=== PATIENT | female | born 1980 | race Caucasian/White ===

== ENCOUNTER 2016-02-20 22:07 | Emergency (ER) | payer OTHER ==
[~2016-02-20 22:07] MED LIST: PREN1CAP30 PO; TETA1INJ4 IM
--- NOTE | 2016-02-20 23:00 | PD ---
HPI Chief Complaint Leakage of fluid Date Seen: Feb 20, 2016 Time Seen: 22:40 Travel History International Travel<30 Days: No Contact w/Intl Traveler<30Days: No Known Affected Area: No History of Present Illness HPI 35-year-old at 39 weeks and 3 days of gestation, EDC 02/24/16, patient presents to labor and delivery complaining of leaking leakage of fluid, she denies cramping, vaginal bleeding, contractions. Patient reports presence of movement. care is with the [facility]. course is unremarkable. Evaluation reveals a negative PAMG1 test ( amnisure). Para: 2 : 5 Miscarriage: 2 : 0 History Past Medical History Narrative Medical Denies Medical History: Denies Significant Hx Obstetric History Obstetric History Spontaneous vaginal delivery 2, spontaneous 2 Past Surgical History Narrative Surgical [place] tooth extraction Family History Narrative Family History Father with hypertension, heart disease and kidney disease Social History Alcohol Use: No Tobacco Use: No Substance Abuse: No Allergies-Medications (Allergen,Severity, Reaction): Coded Allergies: No Known Allergies (Unverified , 02/19/16) Home Meds Active Scripts Without A W/Fe Fum-Fe (Provida Dha 16-16-1.25-110 mg)1 Cap Cap1 Tab PO DAILY #30 BOTTLE Ref 11 Prov:Sirena Siegel CNM [facility] 01/23/16 Review of Systems Except as stated in HPI: all other systems reviewed are Neg Genitourinary: Discharge, Other (leakage of fluid) Physical Exam Narrative GENERAL: Well-nourished, well-developed patient. SKIN: Warm and dry. HEAD: Normocephalic and atraumatic. EYES: No scleral icterus. No injection or drainage. ENT: No nasal drainage noted. Mucous membranes pink. Airway patent. NECK: Supple, trachea midline. No JVD. CARDIOVASCULAR: Regular rate and rhythm without murmurs, gallops, or rubs. RESPIRATORY: Breath sounds equal bilaterally. No accessory muscle use. BREASTS: Bilateral exam showed no masses , no retractions, no nipple discharge. ABDOMEN/GI: Abdomen soft, gravid, non-tender, bowel sounds present, no rebound, no guarding Gravid to 39 weeks size Fundal Height: 39 cm GENITOURINARY: External Genitalia: intact and normal in appearance BUS glands: Normal Cervix: 2 centimeter, 70%, -3, posterior, amnisure is negative Dilatation: 2 cm Effacement:, 90% Station: -3 Presentation: Cephalic Membranes: Intact Uterine Contractions: Occasional FHT's: Category: one Baseline: 140s Reactive: Yes Variability: Moderate Decels: None EXTREMITIES: No cyanosis or edema. BACK: Nontender without obvious deformity. No CVA tenderness. NEUROLOGICAL: Awake and alert. Motor and sensory grossly within normal limits. Five out of 5 muscle strength in all muscle groups. Normal speech. Data Data Vital Signs Reviewed: Yes MDM Diagnosis Diagnosis: Primary Impression: 39 weeks gestation of Additional Impression: False labor after 37 completed weeks of gestation Disposition: 01 DISCHARGE HOME Condition: Stable Patient Instructions: General Instructions, Early Labor Signs (ED) Additional Instructions: RETURN IF LEAKING FLUID, VAGINAL BLEEDING, STRONG CONTRACTIONS OR DECREASE IN BABY MOVING, FOLLOW UP WITH YOUR OB DOCTOR IN AM AND KEEP ALL UPCOMING APPTS. Departure Forms: Tests/Procedures Magen Laurent MD Feb 20, 2016 23:00
[2016-02-24] MEDS ORDERED: TERC20CR VAGINAL (15:26)
== END 2016-02-20 23:06 | disposition home or self-care (01) ==
LOC: HOBED 22:07
DX: O47.1 False labor at or after 37 completed weeks of gestation (principal); Z3A.39 39 weeks gestation of pregnancy
CPT/HCPCS: 84112; 99284

== ENCOUNTER 2016-02-26 10:03 | Inpatient (IN) | payer OTHER ==
[2016-02-26] VITALS (88 sets, daily range): BP systolic 78–127; BP diastolic 55–94; PULSE 58–119; RESP 16–20; TEMP 98–98.2
[~2016-02-26 10:03] MED LIST changes: +TERC20CR VAGINAL
[2016-02-26] MEDS ORDERED: LACTATED RINGER'S 1000 ML INJ 1,000 ML IV PRN (11:02)
[2016-02-26] MEDS ORDERED: LACTATED RINGER'S 1000 ML INJ 1,000 ML IV SCH (11:02)
--- NOTE | 2016-02-26 11:02 | HHI.HP ---
History & Physical H&P HPI Travel History International Travel<30 Days: No Contact w/Intl Traveler<30Days: No Known Affected Area: No History of Present Illness HPI This patient is a 35-year-old 5 para 20-2 EDC is February 24, 2016 presently at 40 weeks and 2 days she presents with chief complaint of back pain with pain radiating down her right leg this has gone on for several weeks however over the past 48 hours has increased. care with [facility] course is significant for advanced maternal age she status post spontaneous AB November 2014 she is group B strep negative and has been treated for yeast her baseline blood pressure was 103/64 History (Limited) History Past Medical History Narrative Medical No known drug allergies no major medical problems Obstetric History Obstetric History First baby born May 142011 at term vaginal delivery male infant 7 lbs. 7 oz. 18 hours of labor uncomplicated Second baby born May 10, 2014 at 40 weeks female weight 7 lbs. 7 oz. 14 hours of labor uncomplicated Spontaneous AB 2 at 6 weeks the other at 12 weeks Past Surgical History Narrative Surgical Breast augmentation cosmetic surgery under her left arm Family History Narrative Family History Hypertension cancer Social History Alcohol Use: No Tobacco Use: No Substance Abuse: No Allergies-Medications Allergies-Medications (Allergen,Severity, Reaction): Coded Allergies: No Known Allergies (Unverified , 02/24/16) Home Meds Active Scripts Terconazole Vaginal Cream (Terazol 3 Vaginal Cream)0.8 % Cream1 Appl VAGINAL HS #20 GM Ref 0 1 applicatorful intravaginally x 3 nights Prov:Sirena Siegel CNM [facility] 02/24/16 Without A W/Fe Fum-Fe (Provida Dha 16-16-1.25-110 mg)1 Cap Cap1 Tab PO DAILY #30 BOTTLE Ref 11 Prov:Sirena Siegel CNM [facility] 01/23/16 ROS Review of Systems Gastrointestinal: No: Nausea, Vomiting, Diarrhea, Abdominal Pain, Hematemesis, Hematochezia, Constipation, Changes in Bowel Habits, Indigestion, Loss of Appetite, Other Genitourinary: Other (leaking fluid amnisure is negative) Musculoskeletal: Other (back pain) Physical Exam Physical Exam Narrative GENERAL: Well-nourished, well-developed patient. Alert oriented 3 and cooperative in moderate distress secondary to back pain SKIN: Warm and dry. HEAD: Normocephalic and atraumatic. EYES: No scleral icterus. No injection or drainage. Conjunctiva are pink sclerae are clear ENT: No nasal drainage noted. Mucous membranes pink. Airway patent. NECK: Supple, trachea midline. No JVD. No thyroid enlargement CARDIOVASCULAR: Regular rate and rhythm without murmurs, gallops, or rubs. RESPIRATORY: Breath sounds equal bilaterally. No accessory muscle use. ABDOMEN/GI: Gravid term estimated weight of 7 pounds Gravid to [-] weeks size term Fundal Height: [-] GENITOURINARY: External Genitalia: intact and normal in appearance BUS glands: [-] Cervix: [-] Soft posterior Dilatation: [-] 2-3 cm Effacement: [-] 50% Station: [-] -2 Presentation: [-] Vertex Membranes: [intact Uterine Contractions: [-] Irregular FHT's: Category: [-] 1 Baseline: [-] 140 Reactive: [-] + Accelerations up to 170 Variability: [-] Moderate [id number] variability Decels: [-] 0 EXTREMITIES: No cyanosis or edema. 2+ nonbrisk NEUROLOGICAL: Awake and alert. Motor and sensory grossly within normal limits. Five out of 5 muscle strength in all muscle groups. Normal speech. Data Data Data Vital Signs Reviewed: Yes (initial blood pressure was 147/133 however repeat 118/76 she is afebrile) Orders Ob (2e) Additional Admit Info (02/26/16 10:47) [facility] Medical Record Reviewed: Yes Interpretation(s) 35-year-old at 40 weeks and 2 days in early labor Advanced maternal age Postdates No clinical evidence of ruptured membranes Group B strep negative History of breast augmentation Plan Admit External monitoring IV fluid hydration CBC type and screen Pitocin augmentation Anticipate vaginal delivery Epidural anesthesia Diagnosis Diagnosis: Primary Impression: Post-dates Qualified Code: O48.0 - Post-term , 40-42 weeks of gestation Additional Impression: Advanced maternal age in multigravida Qualified Code: O09.523 - Advanced maternal age in multigravida, third trimester Flaca Goetz MD Feb 26, 2016 11:01 Flaca Goetz MD Feb 26, 2016 11:02
[2016-02-26] MEDS ORDERED: LIDOCAINE HCL 1% 50 ML VIAL I-DERMAL PRN (11:15)
[2016-02-26] MEDS ORDERED: LIDOCAINE HCL 1% 50 ML VIAL INFIL PRN (11:15)
[2016-02-26] MEDS ORDERED: CITRIC ACID-SODIUM CITRATE LIQ 30 ML UDC PO SCH (11:15)
[2016-02-26] MEDS ORDERED: OXYTOCIN 30 UNITS-500ML PREMIX 500 ML IV SCH (11:15)
[2016-02-26] MEDS ORDERED: OXYTOCIN 30 UNITS-500ML PREMIX 500 ML IV ONE (11:15)
[2016-02-26] MEDS ORDERED: MINERAL OIL 10 ML VIAL TOPICAL PRN (11:15)
[2016-02-26] MEDS ORDERED: SODIUM CHLORID 0.9% 500 ML INJ 500 ML IV PRN (11:15)
[2016-02-26] MEDS ORDERED: SODIUM CHLOR 0.9% 1000 ML INJ 1,000 ML IV PRN (11:22)
[2016-02-26 11:25] LABS: AUTOMATED NEUTROPHIL # 6.8 TH/MM3 (1.8-7.7); BASOPHIL % 0.3 % (0.0-2.0); EOSINOPHIL # 0.1 TH/MM3 (0-0.4); EOSINOPHIL % 0.8 % (0.0-4.0); HEMATOCRIT 36.1 % (35.0-46.0); HEMO FLAGS DIFF FINAL; LYMPH % 19.9 % (9.0-44.0); LYMPHOCYTE # 1.9 TH/MM3 (1.0-4.8); MEAN CELL VOLUME 85.8 FL (80.0-100.0); MEAN CORPUSCULAR HEMOGLOBIN 30.1 PG (27.0-34.0); MONO % 6.5 % (0.0-8.0); NEUT % 72.5 % (16.0-70.0); PLATELET COUNT 202 TH/MM3 (150-450); RED BLOOD COUNT 4.21 MIL/MM3 (4.00-5.30); RED CELL DISTRIBUTION WIDTH 13.3 % (11.6-17.2); WHITE BLOOD COUNT 9.3 TH/MM3 (4.0-11.0)
[2016-02-26 11:45] LABS: BLOOD, URINE NEG (NEG); GLUCOSE,URINE NEG (NEG); KETONE, URINE NEG (NEG); NITRITE,URINE NEG (NEG); PH, URINE 7.5 (5.0-8.5); SQUAMOUS EPITHELIAL CELL URINE 1 /hpf (0-5); URINE COLOR YELLOW (YELLW/STRAW)
[2016-02-26 11:49] LABS: COMMENT (UR) CULT NOT INDICATED; CULTURE IF INDICATED CULT NOT INDICATED
[2016-02-26] MEDS ORDERED: fentaNYL 2MCG-BUPIV 0.125% INJ 100 ML ONE (16:53)
[2016-02-26] MEDS ORDERED: ACETAMINOPHEN 325 MG TAB PO ONE ×2 (19:45)
--- NOTE | 2016-02-26 19:53 | PD.LABORPN ---
Subjective Subjective Patient comfortable with an epidural On exam she 6 cm 75% effaced vertex is at -2 station Artificial rupture of membranes fluid is clear Placement of an IUPC which is functioning Pitocin at 7 milliunits Category 1 tracing Vital signs are stable Anticipate vaginal delivery Objective Vital Signs Vital Signs Date Time Temp Pulse Resp B/P Pulse Ox O2 Delivery O2 Flow Rate FiO2 02/26/16 18:51 88 110/68 02/26/16 18:50 93 02/26/16 18:49 80 103/74 02/26/16 18:46 117/94 02/26/16 18:45 94 02/26/16 18:45 16 02/26/16 18:44 98 111/67 02/26/16 18:42 110 111/66 02/26/16 18:40 119 02/26/16 18:31 98 106/86 02/26/16 18:25 93 02/26/16 18:15 92 16 112/56 02/26/16 18:00 78 102/59 02/26/16 17:45 81 108/68 02/26/16 17:30 81 98/60 02/26/16 17:00 83 101/62 02/26/16 16:45 80 97/55 02/26/16 16:45 16 02/26/16 16:07 98.2 02/26/16 16:06 18 02/26/16 16:01 81 105/63 02/26/16 15:45 79 111/68 02/26/16 15:07 20 02/26/16 15:00 76 107/62 02/26/16 15:00 16 02/26/16 14:45 79 113/72 02/26/16 13:30 73 112/69 02/26/16 13:16 81 105/63 02/26/16 13:00 78 113/64 02/26/16 12:45 69 107/58 02/26/16 12:30 76 108/60 02/26/16 12:19 75 105/72 02/26/16 12:16 75 78/58 Objective Pelvic Exam: Cervix: [-] Dilatation: [-] Effacement: [-] Station: [-] Presentation: [-] Membranes: [intact or ruptured] Uterine Contractions: [-] FHT's: Category: [-] Baseline: [-] Reactive: [-] Variability: [-] Decels: [-] Flaca Goetz MD Feb 26, 2016 19:53
--- NOTE | 2016-02-26 20:26 | PD.LABORPN ---
Subjective Subjective Patient comfortable with an epidural On exam she 6 cm dilated 75% effaced with the vertex at a -2 station Artificial rupture of membranes fluid was clear IUPC placed without difficulty and functioning Category 1 tracing Vital signs are stable Anticipate vaginal delivery Objective Vital Signs Vital Signs Date Time Temp Pulse Resp B/P Pulse Ox O2 Delivery O2 Flow Rate FiO2 02/26/16 19:40 84 02/26/16 19:40 84 105/71 02/26/16 19:35 83 107/69 02/26/16 19:30 79 113/67 02/26/16 19:26 84 108/67 02/26/16 19:25 90 02/26/16 19:21 86 109/65 02/26/16 19:20 86 02/26/16 19:15 87 112/68 02/26/16 19:11 89 92/66 02/26/16 19:10 89 02/26/16 19:09 16 02/26/16 19:05 81 105/63 02/26/16 19:00 88 116/66 02/26/16 18:55 89 110/63 02/26/16 18:51 88 110/68 02/26/16 18:50 93 02/26/16 18:49 80 103/74 02/26/16 18:46 117/94 02/26/16 18:45 94 02/26/16 18:45 16 02/26/16 18:44 98 111/67 02/26/16 18:42 110 111/66 02/26/16 18:40 119 02/26/16 18:31 98 106/86 02/26/16 18:25 93 02/26/16 18:15 92 16 112/56 02/26/16 18:00 78 102/59 17 17:45 81 108/68 17 17:30 81 98/60 17 17:00 83 101/62 17 16:45 80 97/55 02/26/16 16:45 16 02/26/16 16:07 98.2 02/26/16 16:06 18 02/26/16 16:01 81 105/63 1817 15:45 79 111/68 17 15:07 20 02/26/16 15:00 76 107/62 02/26/16 15:00 16 02/26/16 14:45 79 113/72 02/26/16 13:30 73 112/69 02/26/16 13:16 81 105/63 02/26/16 13:00 78 113/64 02/26/16 12:45 69 107/58 02/26/16 12:30 76 108/60 Objective Pelvic Exam: Cervix: [-] Dilatation: [-] Effacement: [-] Station: [-] Presentation: [-] Membranes: [intact or ruptured] Uterine Contractions: [-] FHT's: Category: [-] Baseline: [-] Reactive: [-] Variability: [-] Decels: [-] Flaca Goetz MD Feb 26, 2016 20:26
[2016-02-26] MEDS ORDERED: LIDOCAINE HCL 1.5% PF SOLN 20 ML AMP ONE (21:14)
[2016-02-27] MEDS ORDERED: ONDANSETRON ODT 4 MG TAB PO PRN (00:15)
[2016-02-27] MEDS ORDERED: SODIUM CHLORIDE 0.9% FLUSH 5 ML FLUSH IV PRN (00:15)
[2016-02-27] MEDS ORDERED: ALUMINUM/MAGNESIUM/SIMETH 30 ML CUP PO PRN (00:15)
[2016-02-27] MEDS ORDERED: BENZOCAINE 20% TOPICAL SPRAY 60 ML CAN TOPICAL PRN (00:15)
[2016-02-27] MEDS ORDERED: DOCUSATE SODIUM 50 MG/SENNA 8.6 MG TAB PO PRN (00:15)
[2016-02-27] MEDS ORDERED: WITCH HAZEL 50%/GLYCERIN 12.5% 40 PAD JAR TOPICAL PRN (00:15)
[2016-02-27] MEDS ORDERED: ZOLPIDEM TARTRATE 5 MG TAB PO PRN (00:15)
--- NOTE | 2016-02-27 00:21 | PD.OB.DELI ---
Delivery Date: Feb 26, 2016 Anesthesia: Epidural Episiotomy: None Vaginal Delivery: Normal Presentation: Occiput anterior Nuchal Cord: x1 Infant: Male One Minute : 9 Five Minute : 9 Weight: [id number] Care: Suctioned Placenta: Spontaneous delivery Laceration: 2 deg Repair: Chromic running Additional Information Patient progressed to completely dilated completely effaced delivered over an intact perineum a viable male weight 7 lbs. 10 oz. with Apgars of 9 at 1 minute 9 at 5 minutes For senna delivered spontaneously and intact she sustained a second-degree perineal laceration which was repaired with 2-0 chromic suture under local lidocaine infiltration Estimated blood loss is 300 cc Sponge and instrument count were correct Uterus is firm no active bleeding Patient stable mother stable Flaca Goetz MD Feb 27, 2016 00:21
[2016-02-27] MEDS: IBUPROFEN 600 MG TAB PO PRN ×4 (00:55→19:39)
[2016-02-27 01:30] VITALS: BP 110/66; PULSE 84
[2016-02-27 02:00] VITALS: BP 107/66
[2016-02-27 02:09] VITALS: RESP 18
[2016-02-27 02:10] VITALS: TEMP 98.4
[2016-02-27] MEDS ORDERED: SODIUM CHLORIDE 0.9% FLUSH 5 ML FLUSH IV SCH (09:00)
--- NOTE | 2016-02-27 09:33 | RADRPT ---
EXAM DATE/TIME: 02/27/2016 08:59 [facility] COMPARISON: No previous studies available for comparison. INDICATIONS : Possible foreign body. Posible retained epidural. MEDICAL HISTORY : None. SURGICAL HISTORY : None. ENCOUNTER: Subsequent ACUITY: 1 day PAIN SCORE: 5/10 LOCATION: middle lumbar FINDINGS: Two view examination was performed. There are five non-rib bearing vertebral bodies. The vertebral bodies are in normal alignment without evidence of subluxation or scoliosis. The disc spaces are nirmala ntained. The pedicles are intact. Bony mineralization is normal. No fracture is identified. No rad iopaque foreign bodies are demonstrated on the plain films. CONCLUSION: 1. Unremarkable plain films lumbar spine. 2. No radiopaque foreign bodies by this examination. If this requires further evaluation, a noncontra st CT scan of the lumbar spine could be performed if clinically indicated. Warren Kumar MD on February 27, 2016 at 9:27 Board Certified Radiologist. This report was verified electronically.
--- NOTE | 2016-02-27 09:37 | HHI.OB ---
Subjective Post Day: 1 Remarks day #1. AFVSS overnight. Pain minimal. Decreased lochia. Denies dysuria. No breast tenderness. Appetite good. No nausea or vomiting. Endorses flatus. Denies bowel movement. Ambulating well. Denies calf pain, shortness of breath, or cough. Otherwise, she is doing well this morning and has no other complaints. Objective Vitals/I&O Vital Signs Date Time Temp Pulse Resp B/P Pulse Ox O2 Delivery O2 Flow Rate FiO2 02/27/16 02:10 98.4 02/27/16 02:09 18 02/27/16 02:00 107/66 02/27/16 01:30 84 110/66 02/26/16 23:45 82 02/26/16 23:40 84 02/26/16 23:35 82 02/26/16 23:30 81 02/26/16 23:30 84 18 107/60 02/26/16 23:25 88 02/26/16 23:20 88 02/26/16 23:15 86 103/63 02/26/16 23:15 88 02/26/16 23:10 87 02/26/16 23:05 89 02/26/16 23:00 85 18 103/67 02/26/16 23:00 90 02/26/16 22:55 84 02/26/16 22:50 91 02/26/16 22:45 18 02/26/16 22:45 85 02/26/16 22:45 94 104/59 02/26/16 22:40 96 02/26/16 22:35 95 02/26/16 22:30 94 02/26/16 22:30 94 104/60 02/26/16 22:25 94 02/26/16 22:20 93 02/26/16 22:15 97 02/26/16 22:15 95 106/61 02/26/16 22:11 18 02/26/16 22:10 96 111/60 02/26/16 22:10 96 02/26/16 22:06 97 105/62 02/26/16 22:05 96 02/26/16 22:00 94 02/26/16 22:00 90 02/26/16 21:55 93 02/26/16 21:55 96 116/60 1/18/17 21:50 95 1/18/17 21:50 92 107/62 18/17 21:46 84 114/59 18/17 21:45 98.1 18/17 21:45 99 18 18/17 21:40 97 18/17 21:40 101 95/58 18/17 21:35 103 105/68 18/17 21:35 105 18/17 21:30 58 18/17 21:15 103 18 127/73 18/17 21:05 94 18/17 21:00 84 112/69 18/17 20:55 76 18/17 20:50 85 18/17 20:45 81 116/65 1817 20:45 18 1817 20:40 73 18/17 20:35 74 18/17 20:25 75 18/17 20:20 77 1817 20:15 71 1817 20:15 18 1817 20:00 81 1817 19:45 86 18/17 19:45 84 104/64 18/17 19:45 98.0 18/17 19:40 84 18/17 19:40 84 105/71 18/17 19:35 83 107/69 18/17 19:35 86 18/17 19:30 79 113/67 18/17 19:30 80 18/17 19:26 84 108/67 18/17 19:25 90 18/17 19:21 86 109/65 18/17 19:20 86 18/17 19:15 86 18/17 19:15 87 112/68 18/17 19:11 89 92/66 18/17 19:10 89 18/17 19:09 16 18/17 19:05 83 18/17 19:05 81 105/63 18/17 19:00 82 18/17 19:00 88 116/66 18/17 18:55 89 110/63 18/17 18:55 87 18/17 18:51 88 110/68 1/18/17 18:50 93 02/26/16 18:49 80 103/74 02/26/16 18:46 117/94 02/26/16 18:45 94 02/26/16 18:45 16 02/26/16 18:44 98 111/67 02/26/16 18:42 110 111/66 02/26/16 18:40 119 02/26/16 18:31 98 106/86 02/26/16 18:25 93 02/26/16 18:15 92 16 112/56 02/26/16 18:00 78 102/59 02/26/16 17:45 81 108/68 02/26/16 17:30 81 98/60 02/26/16 17:00 83 101/62 02/26/16 16:45 80 97/55 02/26/16 16:45 16 02/26/16 16:07 98.2 02/26/16 16:06 18 02/26/16 16:01 81 105/63 02/26/16 15:45 79 111/68 02/26/16 15:07 20 02/26/16 15:00 76 107/62 02/26/16 15:00 16 02/26/16 14:45 79 113/72 02/26/16 13:30 73 112/69 02/26/16 13:16 81 105/63 02/26/16 13:00 78 113/64 02/26/16 12:45 69 107/58 02/26/16 12:30 76 108/60 02/26/16 12:19 75 105/72 02/26/16 12:16 75 78/58 Objective Remarks GENERAL: Well-nourished, well-developed patient. CARDIOVASCULAR: Regular rate and rhythm without murmurs, gallops, or rubs. RESPIRATORY: Breath sounds equal bilaterally. No accessory muscle use. ABDOMEN/GI: Abdomen soft, non-tender. Fundus: Firm, non-tender at umbilicus. GENITOURINARY: Light to moderate bleeding. EXTREMITIES: No cyanosis or edema, non-tender, without signs of DVT. Medications and IVs Current Medications Medications (Trade) Dose Ordered Sig/Yusuf Route Start Time Stop Time Status Last Admin Lactated Ringer's 1,000 ml @ 125 mls/hr Q8H IV 02/26/16 11:02 02/26/16 11:48 Lactated Ringer's 1,000 ml @ 3,000 mls/hr Q20M PRN IV 02/26/16 11:02 Sodium Chloride 500 ml @ 1,000 mls/hr ONCE PRN IV 02/26/16 11:15 02/27/16 11:14 (NS 1000 ml Inj) 1,000 ml @ 100 mls/hr Q10H PRN IV 02/26/16 11:22 (fentaNYL INJ) 50 mcg Q1H PRN IV PUSH 02/26/16 11:15 02/26/16 18:12 (fentaNYL INJ) 100 mcg Q1H PRN IV PUSH 02/26/16 11:15 02/26/16 16:15 Mineral Oil 10 ml 10 ml UNSCH PRN TOPICAL 02/26/16 11:15 (Pitocin 30 Units-NS 500 ml Premix) 500 ml @ 0 mls/hr TITRATE IV 02/26/16 11:15 02/26/16 11:49 (NS Flush) 2 ml BID IV 02/27/16 09:00 (NS Flush) 2 ml UNSCH PRN IV 02/27/16 00:15 (Tylenol) 650 mg Q4H PRN PO 02/27/16 00:15 (Motrin) 600 mg Q6H PRN PO 02/27/16 00:15 02/27/16 07:25 (Americaine 20% Top Spr) 1 spray Q4H PRN TOPICAL 02/27/16 00:15 02/27/16 00:55 (Tucks Pads) 1 applic QID PRN TOPICAL 02/27/16 00:15 02/27/16 00:55 (Renee-Colace) 2 tab Q12H PRN PO 02/27/16 00:15 (Ambien) 5 mg HS PRN PO 02/27/16 00:15 (M-M-R Ii Inj) 0.5 ml ONCE ONCE SQ 02/27/16 16:00 02/27/16 16:01 (Boostrix Inj) 0.5 ml ONCE ONCE IM 02/27/16 16:00 02/27/16 16:01 (Mag-Al Plus Susp Liq) 15 ml Q8H PRN PO 02/27/16 00:15 (Zofran Odt) 4 mg Q6H PRN PO 02/27/16 00:15 Assessment/Plan Assessment and Plan 35y/o who is PPD#1 s/p . -Continue routine care. -Percocet and Motrin PRN pain. -Encouraged OOB. Advised pelvic rest for 6 wks. -Will need a f/u appt. within 6 wks. -D/c in 1-2 more days. dw OB attending Discharge Planning 1-2 days Alex Ohara MD R1 Feb 27, 2016 09:37
[2016-02-27] MEDS ORDERED: DIPHTH/TETANUS/ACEL PERTUSSIS (BOOSTER) 0.5 ML VIAL/PFS IM ONE (16:00)
[2016-02-27] MEDS ORDERED: MEASLES, MUMPS, RUBELLA VACCINE 0.5 ML VIAL SQ ONE (16:00)
--- NOTE | 2016-02-27 19:05 | RADRPT ---
EXAM DATE/TIME: 02/27/2016 17:31 [facility] COMPARISON: SPINE LUMBAR LTD (AP & LAT), February 27, 2016, 8:59. INDICATIONS : Lower back pain following epidural yesterday; evaluate for foreign body. RADIATION DOSE: 45.03 CTDIvol (mGy) MEDICAL HISTORY : None SURGICAL HISTORY : None. ENCOUNTER: Initial ACUITY: 1 day PAIN SCALE: 6/10 LOCATION: Lower back. TECHNIQUE: Volumetric scanning of the lumbar spine was performed. Multiplanar reconstructions in the sagittal, coronal and oblique axial planes were performed. Using automated exposure control and adjustment of the mA and/or kV according to patient size, radiation dose was kept as low as reasonab ly achievable to obtain optimal diagnostic quality images. FINDINGS: The sagittal and coronal reconstructions show a moderate amount of epidural air track ing into the deep tissues predominantly in the left erector spinae muscle and finally midline in the subcutaneous soft tissues overlying the spinous processes of the upper lumbar spine. There is no air in the thecal sac itself. Some loss of disc height is predominantly identified at L4-5 and to a less er degree at L3-4 with benign-appearing calcifications in the lumbosacral disc. Vertebral body heigh ts are maintained without fracture or listhesis. There are no radiopaque foreign bodies. Also noted is a vacuum joint phenomenon in the SI joints bilaterally. CONCLUSION: 1. Epidural air in the mid and upper lumbar spine with air tracking through the left erector spinae m uscle belly and into the subcutaneous tissues midline in the upper lumbar spine. 2. No radiopaque foreign body identified. 3. Degenerative disc disease most prominent at L3-4 and L4-5 with some loss of disc height. No acute fracture or listhesis. 4. Vacuum joint phenomenon in the SI joints bilaterally. Palmer Taveras MD on February 27, 2016 at 18:00 Board Certified Radiologist. This report was verified electronically.
[2016-02-27 19:30] VITALS: BP 99/64; PULSE 70; PULSE 90; RESP 14; TEMP 98.4
[2016-02-27] MEDS: ACETAMINOPHEN 325 MG TAB PO PRN (19:39)
[2016-02-28] MEDS: ACETAMINOPHEN 325 MG TAB PO PRN (01:30)
[2016-02-28] MEDS: IBUPROFEN 600 MG TAB PO PRN ×3 (01:31→14:11)
[2016-02-28] MEDS ORDERED: IBUP-232 PO (07:07)
[2016-02-28] MEDS ORDERED: SENN1TAB PO (07:07)
--- NOTE | 2016-02-28 07:08 | HHI.DCPOC ---
Discharge Care Plan Diagnosis: (1) (normal spontaneous vaginal delivery) Goals to Promote Your Health * To prevent worsening of your condition and complications * To maintain your health at the optimal level Directions to Meet Your Goals Take your medications as prescribed Follow your dietary instruction Follow activity as directed Keep your appointments as scheduled Take your immunizations and boosters as scheduled If your symptoms worsen call your PCP, if no PCP go to Urgent Care Center or Emergency Room Smoking is Dangerous to Your Health. Avoid second hand smoke Call the 24-hour hour crisis hotline for domestic abuse at Zain Cook MD R2 Feb 28, 2016 07:07
--- NOTE | 2016-02-28 07:23 | HHI.OB ---
Subjective Remarks day #2. AFVSS overnight. Pain minimal. Decreased lochia. Denies dysuria. No breast tenderness. Appetite good. No nausea or vomiting. Endorses flatus. Denies bowel movement. Ambulating well. Denies calf pain, shortness of breath, or cough. Otherwise, she is doing well this morning and has no other complaints. (Zain Cook MD R2) Remarks Lochia minimal, moderate cramping with mainly. Patient c/o back discomfort at epidural site. Using Motrin and heating pad. Anesthesia following for post epidural management and evaluation for possible retained epidural tip. Imaging with x-ray and Lumbar CT negative. (Zulema Gonzalez MD) Objective Vitals/I&O Vital Signs Date Time Temp Pulse Resp B/P Pulse Ox O2 Delivery O2 Flow Rate FiO2 02/27/16 19:30 70 99/64 02/27/16 19:30 98.4 90 14 Objective Remarks GENERAL: Well-nourished, well-developed patient. CARDIOVASCULAR: Regular rate and rhythm without murmurs, gallops, or rubs. RESPIRATORY: Breath sounds equal bilaterally. No accessory muscle use. ABDOMEN/GI: Abdomen soft, non-tender. Fundus: Firm, non-tender at umbilicus. GENITOURINARY: Light to moderate bleeding. EXTREMITIES: No cyanosis or edema, non-tender, without signs of DVT. Medications and IVs Current Medications Medications (Trade) Dose Ordered Sig/Yusuf Route Start Time Stop Time Status Last Admin Lactated Ringer's 1,000 ml @ 125 mls/hr Q8H IV 02/26/16 11:02 02/26/16 11:48 Lactated Ringer's 1,000 ml @ 3,000 mls/hr Q20M PRN IV 02/26/16 11:02 (NS 1000 ml Inj) 1,000 ml @ 100 mls/hr Q10H PRN IV 02/26/16 11:22 (fentaNYL INJ) 50 mcg Q1H PRN IV PUSH 02/26/16 11:15 02/26/16 18:12 (fentaNYL INJ) 100 mcg Q1H PRN IV PUSH 02/26/16 11:15 02/26/16 16:15 Mineral Oil 10 ml 10 ml UNSCH PRN TOPICAL 02/26/16 11:15 (Pitocin 30 Units-NS 500 ml Premix) 500 ml @ 0 mls/hr TITRATE IV 02/26/16 11:15 02/26/16 11:49 (NS Flush) 2 ml BID IV 02/27/16 09:00 (NS Flush) 2 ml UNSCH PRN IV 02/27/16 00:15 (Tylenol) 650 mg Q4H PRN PO 02/27/16 00:15 02/28/16 01:30 (Motrin) 600 mg Q6H PRN PO 02/27/16 00:15 02/28/16 01:31 (Americaine 20% Top Spr) 1 spray Q4H PRN TOPICAL 02/27/16 00:15 02/27/16 00:55 (Tucks Pads) 1 applic QID PRN TOPICAL 02/27/16 00:15 02/27/16 00:55 (Renee-Colace) 2 tab Q12H PRN PO 02/27/16 00:15 (Ambien) 5 mg HS PRN PO 02/27/16 00:15 (Mag-Al Plus Susp Liq) 15 ml Q8H PRN PO 02/27/16 00:15 (Zofran Odt) 4 mg Q6H PRN PO 02/27/16 00:15 (Zain Cook MD R2) Assessment/Plan Assessment and Plan 35y/o who is PPD#2 s/p . -Continue routine care. -Percocet and Motrin PRN pain. -Encouraged OOB. Advised pelvic rest for 6 wks. -Will need a f/u appt. within 6 wks. -D/c today dw OB attending (Zain Cook MD R2) Attending Attestation PPD #2 s/p Doing well PP precautions F/u with [facility] in 2 weeks D/c management for post-epidural care per anesthesia Patient seen and examined. D/w Dr. Cook and Dr. Ohara (Zulema Gonzalez MD) Zain Cook MD R2 Feb 28, 2016 07:23 Zulema Gonzalez MD Feb 28, 2016 08:24
[2016-02-28 07:30] VITALS: BP 80/50; PULSE 61; RESP 18; TEMP 98.5
== END 2016-02-28 16:46 | disposition home or self-care (01) | DRG 775 ==
LOC: HOBED 10:03 → H2EA 10:56 → H1EA 02-27 02:23
PROVIDERS: ADMIT Obstetrics & Gynecology; ATTEND Obstetrics & Gynecology
PROC: 00HU33Z Insertion of Infusion Device into Spinal Canal, Percutaneous Approach (ICD-10-PCS; principal; 2016-02-26)
PROC: 0KQM0ZZ Repair Perineum Muscle, Open Approach (ICD-10-PCS; 2016-02-26)
PROC: 10E0XZZ Delivery of Products of Conception, External Approach (ICD-10-PCS; 2016-02-26)
PROC: 3E0R3CZ (ICD-10-PCS; 2016-02-26)
DX: O70.1 Second degree perineal laceration during delivery (principal); Z37.0 Single live birth; O09.529 Supervision of elderly multigravida, unspecified trimester; O69.81X0 Labor and delivery complicated by cord around neck, without compression, not applicable or unspecified; Z3A.40 40 weeks gestation of pregnancy
CPT/HCPCS: 72100; 72131; 81001; 84112; 85025; 99285; J2590; J3010; J7120